=== PATIENT | male | born 1980 | race Caucasian/White ===

== ENCOUNTER 2018-08-01 14:53 | Emergency (ER) | payer OTHER ==
[~2018-08-01] VITALS: Ht 182.9 cm; Wt 104.3 kg
[2018-08-01 15:00] VITALS: BP 121/86
[2018-08-01 16:00] VITALS: BP 120/84
== END 2018-08-01 16:20 | disposition home or self-care (01) ==
LOC: MED 14:53
DX: F18.10 Inhalant abuse, uncomplicated (principal); R53.1 Weakness; F17.200 Nicotine dependence, unspecified, uncomplicated
CPT/HCPCS: 99281

== ENCOUNTER 2021-04-15 05:32 | Emergency (ER) | payer OTHER ==
[~2021-04-15] VITALS: Ht 182.9 cm; Wt 94.3 kg
[2021-04-15 05:49] VITALS: BP 145/90
--- NOTE | 2021-04-15 05:52 | NUR ---
to lobby a/w bed ambulatory
--- NOTE | 2021-04-15 06:25 | NUR ---
send and examined by nina, with orders and carried out
[2021-04-15] MEDS ORDERED: IBUP-2213 PO (06:28)
[2021-04-15] MEDS ORDERED: COROTSOL RIGHT EAR (06:28)
[2021-04-15] MEDS ORDERED: IBUPROFEN 600 MG TAB PO ONE (06:30)
--- NOTE | 2021-04-15 06:30 | NUR ---
medicated as per ermds order, tolerated well.
[2021-04-15 06:55] VITALS: BP 132/82
--- NOTE | 2021-04-15 06:55 | NUR ---
Patient discharged with v/s stable. Written and verbal after care instructions given and explained. Patient alert, oriented and verbalized understanding of instructions. Ambulatory with steady gait. All questions addressed prior to discharge. ID band removed. Patient advised to follow up with PMD. Rx of ibuprofen, cortisporin otic solution given. Patient educated on indication of medication including possible reaction and side effects. Opportunity to ask questions provided and answered.
[2021-04-16] MEDS ORDERED: COROTSOL RIGHT EAR ×2 (06:13→11:50)
[2021-04-16] MEDS ORDERED: IBUP-2213 PO (11:50)
== END 2021-04-15 06:55 | disposition home or self-care (01) ==
LOC: MED 05:32
DX: H60.91 Unspecified otitis externa, right ear (principal)
CPT/HCPCS: 99283

== ENCOUNTER 2021-04-16 05:39 | Emergency (ER) | payer OTHER ==
[~2021-04-16] VITALS: Ht 182.9 cm; Wt 90.7 kg
[~2021-04-16 05:39] MED LIST: COROTSOL RIGHT EAR; IBUP-2213 PO
--- NOTE | 2021-04-16 05:59 | NUR ---
PT TAKEN TO BED 12
[2021-04-16 06:00] VITALS: BP 156/91
--- NOTE | 2021-04-16 06:00 | NUR ---
41/M BIB SELF C/O R EAR PAIN 03/14 FOR DAYS NOW. PT STATES HE FEELS LIKE SOMETHING IS INSIDE. PT DENIES ANY RECENT TRAUMA. PT PLACED SUNBLOCK ON EAR. DENIES ANY LOSS OF HEARING. DENIES PMH NKDA
--- NOTE | 2021-04-16 06:10 | NUR ---
DR JIN AT BEDSIDE EXAMINING PATIENT
[2021-04-16] MEDS ORDERED: COROTSOL RIGHT EAR ×2 (06:13→11:50)
[2021-04-16] MEDS ORDERED: HYDROcodone/APAP 5/325 MG 1 TAB TAB PO ONE (06:15)
--- NOTE | 2021-04-16 06:22 | NUR ---
EAR IRRIGATION DONE BY EMT AT BEDSIDE
[2021-04-16 06:36] VITALS: BP 156/91
--- NOTE | 2021-04-16 06:36 | NUR ---
Patient discharged with v/s stable. Written and verbal after care instructions given and explained. Patient alert, oriented and verbalized understanding of instructions. Ambulatory with steady gait. All questions addressed prior to discharge. ID band removed. Patient advised to follow up with PMD. Rx of CORTISPORIN given. Patient educated on indication of medication including possible reaction and side effects. Opportunity to ask questions provided and answered.
[2021-04-16] MEDS ORDERED: IBUP-2213 PO (11:50)
== END 2021-04-16 06:36 | disposition home or self-care (01) ==
LOC: MED 05:39
DX: H66.91 Otitis media, unspecified, right ear (principal)
CPT/HCPCS: 99283

== ENCOUNTER 2021-07-07 10:30 | Emergency (ER) | payer OTHER ==
[~2021-07-07] VITALS: Ht 182.9 cm; Wt 93.4 kg
[2021-07-07 10:33] VITALS: BP 153/99
--- NOTE | 2021-07-07 10:40 | NUR ---
41 Y/O M BIB SELF FROM HOME, PATIENT PRESENTS TO ED WITH WITHDRAWAL SYMPTOMS THIS MORINING. PT STATES HE HAS BEEN USING METH FOR 3 YEARS AND STOPPED 3 DAYS AGO . DENIES N/V/D; SKIN IS PINK/WARM/DRY; AAOX4 WITH EVEN AND STEADY GAIT; LUNGS CLEAR BL; HR EVEN AND REGULAR; PT DENIES ANY FEVER, CP, SOB, OR COUGH AT THIS TIME; PATIENT STATES PAIN OF 5/10 AT THIS TIME, [place]; VSS; PATIENT POSITIONED FOR COMFORT; HOB ELEVATED; BEDRAILS UP X2; BED DOWN. ER MD MADE AWARE OF PT STATUS. PMH: DENIES NKA MED: DENIES
[2021-07-07] MEDS ORDERED: LORazepam 1 MG TAB PO ONE (10:55)
[2021-07-07 11:50] VITALS: BP 153/99
--- NOTE | 2021-07-07 11:50 | NUR ---
PT LEFT AMA, NO PAPERS SIGNED, WALKED OUT AT THIS TIME.
== END 2021-07-07 11:50 | disposition left against medical advice (07) ==
LOC: MED 10:30
DX: F15.23 Other stimulant dependence with withdrawal (principal); Z53.21 Procedure and treatment not carried out due to patient leaving prior to being seen by health care provider
CPT/HCPCS: 93005